=== PATIENT | female | born 1995 | race Caucasian/White ===

== ENCOUNTER → 2016-08-10 | Outpatient (CLI) | payer BC ==
--- NOTE | 2016-08-10 17:02 | US ---
EXAMINATION TYPE: US pelvis complete transvag DATE OF EXAM: 08/10/2016 4:07 PM COMPARISON: NONE CLINICAL HISTORY: R19.00 Pelvic mass. Left pelvic pain, right oopherectomy - history of ovarian cance r TECHNIQUE: Transvaginal (TV) and Transabdominal (TA) Date of LMP: 07/29/16 EXAM MEASUREMENTS: Uterus: 9.1 x 4.2 x 5.8 cm Endometrial Stripe: 1.3 cm Right Ovary: Surgically absent Left Ovary: 4.3 x 3.6 x 2.1 cm 1. Uterus: Anteverted complex cystic area OLIVIA = 1.3 x 1.2 x 1.1cm 2. Endometrium: thickened for menstrual stage 3. Right Ovary: Surgically absent 4. Left Ovary: multiple follicles 5. Bilateral Adnexa: small amount of free fluid left adnexa adjacent to left ovary 6. Posterior cul-de-sac: small amount of free fluid IMPRESSION: 1. Small amount of free fluid within the pelvis. 2. Follicles within the left ovary. 3. Septated cyst or 2 adjacent cysts within the lower uterine segment. Positioning is somewhat unclea r although nabothian cysts could be considered within the differential. Follow-up is recommended.
== END ==
LOC: RADUSWWP 15:36
PROVIDERS: ATTEND Obstetrics & Gynecology
DX: N85.8 Other specified noninflammatory disorders of uterus (principal); Z85.43 Personal history of malignant neoplasm of ovary
CPT/HCPCS: 76830; 76856

== ENCOUNTER 2020-02-26 17:30 | Emergency (ER) | payer BC, OTHER ==
--- NOTE | 2020-02-26 18:22 | ED ---
General Adult HPI - General Chief complaint: Abdominal Pain Stated complaint: 17 wks preg - abd pain/cramping Time Seen by Provider: 02/26/20 17:57 Source: patient Mode of arrival: ambulatory Limitations: no limitations - History of Present Illness Initial comments: Dictation was produced using [employer] dictation software. please excuse any grammatical, word or spelling errors. This patient was cared for during a federal and state declared state of emergency secondary to Covid 19 Chief Complaint: 24-year-old female presents with right lower quadrant abdominal pain History of Present Illness: 24-year-old female she has past medical history of appendectomy and right oophorectomy. She states that today she has been experiencing right lower quadrant abdominal pain. She states the pain radiates to her midline over the suprapubic area. Patient denies any nausea, vomiting, vaginal bleeding, vaginal discharge, fevers. Patient otherwise feels fine. She is never expressed any pain like this in the past. States that his symptoms are worse with palpation to the area. She'll also reports pain with movement. Discussed pain as a sharp pain. The ROS documented in this emergency department record has been reviewed and confirmed by me. Those systems with pertinent positive or negative responses have been documented in the HPI. All other systems are other negative and/or noncontributory. PHYSICAL EXAM: General Impression: Alert and oriented x3, not in acute distress HEENT: Normocephalic atraumatic, extra-ocular movements intact, pupils equal and reactive to light bilaterally, mucous membranes moist. Cardiovascular: Heart regular rate and rhythm Chest: Able to complete full sentences, no retractions, no tachypnea Abdomen: abdomen soft, gravid abdomen, mild palpable tenderness to the right lower quadrant suprapubic area non-distended, no organomegaly Musculoskeletal: Pulses present and equal in all extremities, no peripheral edema Motor: no focal deficits noted Neurological: CN II-XII grossly intact, no focal motor or sensory deficits noted Skin: Intact with no visualized rashes Psych: Normal affect and mood ED course: 24-year-old female presents with suprapubic abdominal pain.Patient seems to have pain with palpation to the area. She doesn't have any other accompanied symptoms. She looks well at bedside. Laboratory evaluation obtained. CBC unremarkable. Coag panel is negative. Metabolic panel is negative. Urinalysis is negative. Patient is a positive. ultrasound was obtained showing single live intrauterine . There is an indeterminatel area of decreased echogenicity may be related to venous sánchez. She was notified of these results. She is told to follow-up with her EQUIPMENT MAINTENANCE SUPERVISOR. Return parameters discussed - Related Data Allergies Allergy/AdvReac Type Severity Reaction Status Date / Time No Known Allergies Allergy Verified 02/26/20 17:55 Review of Systems ROS Statement: Those systems with pertinent positive or pertinent negative responses have been documented in the HPI. ROS Other: All systems not noted in ROS Statement are negative. Past Medical History Past Medical History: Cancer Additional Past Medical History / Comment(s): ovarian cancer History of Any Multi-Drug Resistant Organisms: None Reported Past Surgical History: Appendectomy Past Psychological History: Anxiety Smoking Status: Never smoker Past Alcohol Use History: None Reported Past Drug Use History: None Reported General Exam Limitations: no limitations Course Vital Signs 02/26/20 17:53 Temperature 99.3 F Pulse Rate 94 Respiratory 20 Rate Blood Pressure 178/84 O2 Sat by Pulse 100 Oximetry Medical Decision Making - Lab Data Result diagrams: 02/26/20 18:25 02/26/20 18:25 Lab Results 02/26/20 02/26/20 02/26/20 Range/Units 17:57 18:07 18:25 WBC 10.1 (3.8-10.6) k/uL RBC 4.02 (3.80-5.40) m/uL Hgb 11.9 (11.4-16.0) gm/dL Hct 36.1 (34.0-46.0) % MCV 89.9 (80.0-100.0) fL MCH 29.6 (25.0-35.0) pg MCHC 32.9 (31.0-37.0) g/dL RDW 13.8 (11.5-15.5) % Plt Count 209 (150-450) k/uL Neutrophils % 70 % Lymphocytes % 21 % Monocytes % 5 % Eosinophils % 2 % Basophils % 0 % Neutrophils # 7.1 (1.3-7.7) k/uL Lymphocytes # 2.1 (1.0-4.8) k/uL Monocytes # 0.5 (0-1.0) k/uL Eosinophils # 0.2 (0-0.7) k/uL Basophils # 0.0 (0-0.2) k/uL PT (9.0-12.0) sec INR (<1.2) APTT (22.0-30.0) sec Sodium (137-145) mmol/L Potassium (3.5-5.1) mmol/L Chloride (98-107) mmol/L Carbon Dioxide (22-30) mmol/L Anion Gap mmol/L BUN (7-17) mg/dL Creatinine (0.52-1.04) mg/dL Est GFR (CKD-EPI)AfAm (>60 ml/min/1.73 sqM) Est GFR (CKD-EPI)NonAf (>60 ml/min/1.73 sqM) Glucose (74-99) mg/dL Calcium (8.4-10.2) mg/dL Total Bilirubin (0.2-1.3) mg/dL AST (14-36) U/L ALT (4-34) U/L Alkaline Phosphatase (38-126) U/L Total Protein (6.3-8.2) g/dL Albumin (3.5-5.0) g/dL Urine Color Light Yellow Urine Appearance Clear (Clear) Urine pH 5.0 (5.0-8.0) Ur Specific [place] 1.022 (1.001-1.035) Urine Protein Negative (Negative) Urine Glucose (UA) Negative (Negative) Urine Ketones Negative (Negative) Urine Blood Negative (Negative) Urine Nitrite Negative (Negative) Urine Bilirubin Negative (Negative) Urine Urobilinogen <2.0 (<2.0) mg/dL Ur Leukocyte Esterase Negative (Negative) Urine HCG, Qual Detected (Not Detectd) Blood Type Blood Type Confirm Blood Type Recheck Bld Type Recheck Status Antibody Screen Spec Expiration Date 02/26/20 02/26/20 02/26/20 Range/Units 18:25 18:25 18:25 WBC (3.8-10.6) k/uL RBC (3.80-5.40) m/uL Hgb (11.4-16.0) gm/dL Hct (34.0-46.0) % MCV (80.0-100.0) fL MCH (25.0-35.0) pg MCHC (31.0-37.0) g/dL RDW (11.5-15.5) % Plt Count (150-450) k/uL Neutrophils % % Lymphocytes % % Monocytes % % Eosinophils % % Basophils % % Neutrophils # (1.3-7.7) k/uL Lymphocytes # (1.0-4.8) k/uL Monocytes # (0-1.0) k/uL Eosinophils # (0-0.7) k/uL Basophils # (0-0.2) k/uL PT 9.8 (9.0-12.0) sec INR 0.9 (<1.2) APTT 21.3 L (22.0-30.0) sec Sodium 134 L (137-145) mmol/L Potassium 3.4 L (3.5-5.1) mmol/L Chloride 105 (98-107) mmol/L Carbon Dioxide 24 (22-30) mmol/L Anion Gap 5 mmol/L BUN 9 (7-17) mg/dL Creatinine 0.56 (0.52-1.04) mg/dL Est GFR (CKD-EPI)AfAm >90 (>60 ml/min/1.73 sqM) Est GFR (CKD-EPI)NonAf >90 (>60 ml/min/1.73 sqM) Glucose 78 (74-99) mg/dL Calcium 9.1 (8.4-10.2) mg/dL Total Bilirubin 0.2 (0.2-1.3) mg/dL AST 20 (14-36) U/L ALT 14 (4-34) U/L Alkaline Phosphatase 56 (38-126) U/L Total Protein 6.8 (6.3-8.2) g/dL Albumin 3.7 (3.5-5.0) g/dL Urine Color Urine Appearance (Clear) Urine pH (5.0-8.0) Ur Specific [place] (1.001-1.035) Urine Protein (Negative) Urine Glucose (UA) (Negative) Urine Ketones (Negative) Urine Blood (Negative) Urine Nitrite (Negative) Urine Bilirubin (Negative) Urine Urobilinogen (<2.0) mg/dL Ur Leukocyte Esterase (Negative) Urine HCG, Qual (Not Detectd) Blood Type Blood Type Confirm Blood Type Recheck No Previous Record Bld Type Recheck Status CABO Indicated Antibody Screen Spec Expiration Date 02/29/2020232402/26/20 02/26/20 Range/Units 18:37 18:37 WBC (3.8-10.6) k/uL RBC (3.80-5.40) m/uL Hgb (11.4-16.0) gm/dL Hct (34.0-46.0) % MCV (80.0-100.0) fL MCH (25.0-35.0) pg MCHC (31.0-37.0) g/dL RDW (11.5-15.5) % Plt Count (150-450) k/uL Neutrophils % % Lymphocytes % % Monocytes % % Eosinophils % % Basophils % % Neutrophils # (1.3-7.7) k/uL Lymphocytes # (1.0-4.8) k/uL Monocytes # (0-1.0) k/uL Eosinophils # (0-0.7) k/uL Basophils # (0-0.2) k/uL PT (9.0-12.0) sec INR (<1.2) APTT (22.0-30.0) sec Sodium (137-145) mmol/L Potassium (3.5-5.1) mmol/L Chloride (98-107) mmol/L Carbon Dioxide (22-30) mmol/L Anion Gap mmol/L BUN (7-17) mg/dL Creatinine (0.52-1.04) mg/dL Est GFR (CKD-EPI)AfAm (>60 ml/min/1.73 sqM) Est GFR (CKD-EPI)NonAf (>60 ml/min/1.73 sqM) Glucose (74-99) mg/dL Calcium (8.4-10.2) mg/dL Total Bilirubin (0.2-1.3) mg/dL AST (14-36) U/L ALT (4-34) U/L Alkaline Phosphatase (38-126) U/L Total Protein (6.3-8.2) g/dL Albumin (3.5-5.0) g/dL Urine Color Urine Appearance (Clear) Urine pH (5.0-8.0) Ur Specific [place] (1.001-1.035) Urine Protein (Negative) Urine Glucose (UA) (Negative) Urine Ketones (Negative) Urine Blood (Negative) Urine Nitrite (Negative) Urine Bilirubin (Negative) Urine Urobilinogen (<2.0) mg/dL Ur Leukocyte Esterase (Negative) Urine HCG, Qual (Not Detectd) Blood Type A Positive Blood Type Confirm A Positive Blood Type Recheck Bld Type Recheck Status Antibody Screen NEGATIVE Spec Expiration Date Disposition Clinical Impression: Abdominal pain Disposition: HOME SELF-CARE Condition: Good Additional Instructions: Today reevaluated for inferior abdominal pain. Your labs all were within acceptable limits. Your ultrasound showed an indeterminate marginal area of decreased echogenicity may be related to a venous sánchez. It is unclear what this finding represents. More than likely it is non-worrisome. However, please follow-up with your EQUIPMENT MAINTENANCE SUPERVISOR. Is patient prescribed a controlled substance at d/c from ED?: No Referrals: Tanya Bill MD [STAFF PHYSICIAN] - 1-2 days Time of Disposition: 20:11
[2020-02-26 18:46] LABS: Basophils % (A) 0 %; Eosinophils # (A) 0.2 k/uL (0-0.7); Eosinophils % (A) 2 %; HCT 36.1 % (34.0-46.0); HGB 11.9 gm/dL (11.4-16.0); Lymphocytes # (A) 2.1 k/uL (1.0-4.8); Lymphocytes % (A) 21 %; MCH 29.6 pg (25.0-35.0); MCHC 32.9 g/dL (31.0-37.0); MCV 89.9 fL (80.0-100.0); Mean Platelet Volume 6.7; Monocytes # (A) 0.5 k/uL (0-1.0); Monocytes % (A) 5 %; Neutrophils # (A) 7.1 k/uL (1.3-7.7); Neutrophils % (A) 70 %; Platelet Count 209 k/uL (150-450); RBC 4.02 m/uL (3.80-5.40); RDW 13.8 % (11.5-15.5); WBC 10.1 k/uL (3.8-10.6)
[2020-02-26 18:53] LABS: ALT 14 U/L (4-34); AST 20 U/L (14-36); African American GFR (CKD) >90 (>60 ml/min/1.73 sqM); Albumin 3.7 g/dL (3.5-5.0); Alkaline Phosphatase 56 U/L (38-126); Anion Gap 5 mmol/L; Blood Urea Nitrogen 9 mg/dL (7-17); Calcium 9.1 mg/dL (8.4-10.2); Carbon Dioxide 24 mmol/L (22-30); Chloride 105 mmol/L (98-107); Glucose 78 mg/dL (74-99); Non-African American GFR(CKD) >90 (>60 ml/min/1.73 sqM); Potassium 3.4 mmol/L (3.5-5.1); Sodium 134 mmol/L (137-145); Total Bilirubin 0.2 mg/dL (0.2-1.3); Total Protein 6.8 g/dL (6.3-8.2)
[2020-02-26 19:33] LABS: INR 0.9 (<1.2); Prothrombin Time 9.8 sec (9.0-12.0)
[2020-02-26 19:44] LABS: Partial Thromboplastin Time 21.3 sec (22.0-30.0)
--- NOTE | 2020-02-26 19:53 | US ---
EXAMINATION TYPE: US OB >= 14 wk fetus DATE OF EXAM: 02/26/2020 COMPARISON: Pelvic US 2017 CLINICAL HISTORY: pelvic painPelvic pain x 2 days. Hx right ovary removed, right ovarian cancer, appe ndectomy, . . TECHNIQUE: Transabdominal (TA) GESTATIONAL AGE / DATING Physician Established: (17 weeks/5 days) EDC: 07/31/2020 Dates by LMP: (17 weeks/5 days) EDC: 07/31/2020 Dates by First Scan: This is first scan Dates by Current Scan: (18 weeks/0 days) EDC: 07/29/2020 SURVEY IUP: Single PLACENTA: Posterior. Indistinct, hypoechoic/complex area is seen adjacent to the placenta posteroinfe riorly measurin.4 x 3.7 x 1.1 cm. PREVIA: No Previa seen. JOHNNIE: 12.83 cm Normal CERVICAL LENGTH (transabdominal: norm > 3.0cm): 4.31 cm BIOMETRY PRESENTATION: Vertex LIE: Longitudinal BPD: 4.00 cm 18 weeks / 1 day HC: 15.05 cm 18 weeks / 1 day AC: 12.61 cm 18 weeks / 1 day FL: 2.57 cm 17 weeks / 6 days ESTIMATED WEIGHT IN GRAMS: 220.43 grams ESTIMATED WEIGHT IN LBS/OZ: 0 lbs. 8 oz. WEIGHT PERCENTAGE BASED ON ESTABLISHED DATES: 64.9% HC/AC: 1.19 Normal FL/AC: 20.38 HEART RATE: 159 bpm RHYTHM: Normal IMPRESSION: Single viable intrauterine corresponding to ultrasound age 18 weeks 0 days with estimated d ate of delivery 07/29/2020. Indeterminate marginal area decreased echogenicity may be related to venous sánchez.
[2020-02-26 19:55] LABS: Appearance,Urine Clear (Clear); Bilirubin,Urine Negative (Negative); Blood,Urine Negative (Negative); Color,Urine Light Yellow; Glucose,Urine (UA) Negative (Negative); Ketones,Urine Negative (Negative); Leukocyte Esterase,Urine Negative (Negative); Nitrite,Urine Negative (Negative); Protein,Urine Negative (Negative); Specific Gravity,Urine 1.022 (1.001-1.035); Urobilinogen,Urine <2.0 mg/dL (<2.0)
[2020-02-26 20:29] VITALS: BP 131/87; PULSE 75; RESP 18; TEMP 97.8
== END 2020-02-26 20:29 | disposition home or self-care (01) ==
LOC: EC 17:30
DX: O26.892 Other specified pregnancy related conditions, second trimester (principal); Z85.43 Personal history of malignant neoplasm of ovary; Z90.49 Acquired absence of other specified parts of digestive tract; Z3A.18 18 weeks gestation of pregnancy
CPT/HCPCS: 36415; 76805; 80053; 81003; 81025; 85025; 85610; 85730; 86850; 86900; 86901; 99284

== ENCOUNTER 2020-07-21 14:20 | Outpatient (CLI) | payer OTHER ==
[2020-07-21 15:52] LABS: Basophils % (A) 0 %; Eosinophils # (A) 0.1 k/uL (0-0.7); Eosinophils % (A) 1 %; HCT 34.4 % (34.0-46.0); HGB 11.9 gm/dL (11.4-16.0); Lymphocytes # (A) 1.9 k/uL (1.0-4.8); Lymphocytes % (A) 20 %; MCH 28.9 pg (25.0-35.0); MCHC 34.4 g/dL (31.0-37.0); Mean Platelet Volume 7.9; Monocytes # (A) 0.5 k/uL (0-1.0); Monocytes % (A) 5 %; Neutrophils # (A) 6.7 k/uL (1.3-7.7); Neutrophils % (A) 72 %; Platelet Count 233 k/uL (150-450); RDW 14.6 % (11.5-15.5); WBC 9.3 k/uL (3.8-10.6)
[2020-07-21 15:56] LABS: Uric Acid 4.9 mg/dL (3.7-7.4)
[2020-07-21 16:00] VITALS: PULSE 99; RESP 18; TEMP 96.5
[2020-07-21 16:16] VITALS: BP 134/81
--- NOTE | 2020-07-22 07:38 | P.MSEPDOC ---
Presenting Problems - Arrival Data Date of Arrival on Unit: 07/21/20 Time of Arrival on Unit: 14:20 Mode of Transport: Ambulatory - Complaint OB-Reason for Admission/Chief Complaint: Other Comment: co elevated blood pressures, dizziness, swelling of hands and feet. Medical History - Information : 2 Para: 1 Term: 1 : 0 Abortions: Spontaneous or Elective: 0 Number of Living Children: 1 - Gestational Age Gestational Age by MOLLY (wks/days): 38 Weeks and 4 Days - History Comment: elevated blood pressures. pih labs 07/18/20 in office. results unavaiable at this time. dizziness and swelling of feet and hands Review of Systems - Review of Systems Constitutional: No problems Breast: No problems ENT: No problems Cardiovascular: No problems Respiratory: No problems Gastrointestinal: No problems Genitourinary: No problems Musculoskeletal: No problems Neurological: No problems Skin: No problems Vital Signs - Temperature Temperature: 96.5 F Temperature Source: Temporal Artery Scan - Pulse Right Brachial Pulse Rate: 99 Pulse Assessment Method: Automatic Cuff - Respirations Respiratory Rate: 18 Oxygen Delivery Method: Room Air O2 Sat by Pulse Oximetry: 100 - Blood Pressure Right Arm Blood Pressure: 134/81 Blood Pressure Mean: 98 Blood Pressure Source: Automatic Cuff Medical Screen Scoring (Pre) - Cervical Exam Dilation: Exam Deferred Effacement: Exam Deferred Membranes: Intact - Uterine Contractions Frequency: N/A Duration: N/A Intensity: N/A - Maternal Vital Signs Maternal Temperature: N/A Maternal Blood Pressure: Diastolic > 89 = 1 Signs of Preeclampsia: Visual Disturbance = 1, 3+ edema of dependent extremities = 2 Maternal Respirations: N/A - Maternal Trauma Maternal Trauma: N/A - Assessment - Baby A Baseline FHR: 135 Heart Rate - NICHD Category: Category I (Normal) = 0 NST: Reactive Position: N/A Station: N/A - Total Score - Baby A Total Score - Baby A: 4 - Total Score - Baby B Total Score - Baby B: 4 - Total Score - Baby C Total Score - Baby C: 4 - Level of Risk - Baby A Level of Risk - Baby A: Low (0-5) - Level of Risk - Baby B Level of Risk - Baby B: Low (0-5) - Level of Risk - Baby C Level of Risk - Baby C: Low (0-5) Physician Notification (Pre) - Physician Notified Physician Notified Date: 07/21/20 Physician Notified Time: 15:15 New Order Received: Yes - Notification Comment Comment: alt, at, uric acid and cbc to be drawn. if wnl...may discharge home to keep appt with dr mcgowan tomorrow as scheduled. if abnormal call dr galeano with results Medical Screen Scoring (Post) - Cervical Exam Dilation: Exam Deferred Effacement: Exam Deferred Membranes: Intact - Uterine Contractions Frequency: N/A Duration: N/A Intensity: N/A - Maternal Vital Signs Maternal Temperature: N/A Maternal Blood Pressure: N/A Signs of Preeclampsia: 3+ edema of dependent extremities = 2 Maternal Respirations: N/A - Pain Assessment Pain Scale Used: Numeric (1 - 10) Pain Intensity: 0 - Maternal Trauma Maternal Trauma: N/A - Assessment - Baby A Heart Rate: 135 Heart Rate - NICHD Category: Category I (Normal) = 0 NST: Reactive Position: N/A Station: N/A - Total Score Total Score - Baby A: 2 Total Score - Baby B: 2 Total Score - Baby C: 2 - Post Treatment Level of Risk Post Treatment Level of Risk - Baby A: Low (0-5) Post Treatment Level of Risk - Baby B: Low (0-5) Post Treatment Level of Risk - Baby C: Low (0-5) Physician Notification (Post) - Physician Notified Physician Notified Date: 07/21/20 Physician Notified Time: 15:15 Physician/Practitioner Notified:: yes Spoke WithOtto galeano New Order Received: Yes - Notification Comment Comment: lab results wnl. to discharge home. Disposition - Disposition OB Disposition: Discharge to home Discharge Date: 07/21/20 Discharge Time: 16:15 I agree with the RN Medical Screening Exam: Yes Case reviewed; plan agreed upon as documented in EMR&OBIX.: Yes Comments: Patient was neither seen nor examined by me. Diagnosis: RELATED CONDITIONS, UNSPECIFIED, THIRD TRIMESTER
== END 2020-07-21 16:45 | disposition home or self-care (01) ==
LOC: FBPOP 14:20
PROVIDERS: ATTEND Obstetrics & Gynecology
DX: O26.93 Pregnancy related conditions, unspecified, third trimester (principal); Z3A.38 38 weeks gestation of pregnancy
CPT/HCPCS: 59025; 84450; 84460; 84550; 85025; 99215

== ENCOUNTER 2020-07-29 10:11 | Inpatient (IN) | payer OTHER ==
[2020-07-26 10:54] VITALS: BMI 42.3
[2020-07-29] MEDS ORDERED: LACTATED RINGERS 1,000 ML IV SCH (10:29)
[2020-07-29] MEDS ORDERED: CITRIC ACID-SODIUM CITRATE 15 ML CUP PO ONE (10:29)
[2020-07-29] MEDS ORDERED: LACTATED RINGERS 1,000 ML IV ONE (10:29)
[2020-07-29] MEDS ORDERED: ceFAZolin 3 GM in SODIUM CHLORIDE 0.9% 100 ML IVPB ONE (10:29)
[2020-07-29 11:48] LABS: Basophils % (A) 0 %; Eosinophils # (A) 0.1 k/uL (0-0.7); Eosinophils % (A) 1 %; HCT 32.8 % (34.0-46.0); HGB 10.9 gm/dL (11.4-16.0); Lymphocytes # (A) 1.8 k/uL (1.0-4.8); Lymphocytes % (A) 18 %; MCH 28.2 pg (25.0-35.0); MCHC 33.3 g/dL (31.0-37.0); MCV 84.6 fL (80.0-100.0); Monocytes # (A) 0.5 k/uL (0-1.0); Monocytes % (A) 5 %; Neutrophils # (A) 7.4 k/uL (1.3-7.7); Neutrophils % (A) 74 %; Platelet Count 234 k/uL (150-450); RBC 3.88 m/uL (3.80-5.40); RDW 15.4 % (11.5-15.5); WBC 9.9 k/uL (3.8-10.6)
--- NOTE | 2020-07-29 11:59 | P.HPOB ---
History of Present Illness H&P Date: 07/29/20 Chief Complaint: Term , previous This is a 24 year old 2 para 1001 woman with an estimated due date of 07/31/2020. She is scheduled for repeat low transverse section and bilateral tubal ligation. Her history is significant for previous term low transverse section in 2013. She desires repeat and after counseling regarding contraceptive options as determined that she would like to proceed with bilateral tubal ligation. Her past medical history is significant for a Sertoli-Leydig cell tumor of the ovary in 2009. Obstetric history: 2014 and 40 week term low transverse section of 8 lbs. 4 oz. infant. Laboratory data: Group B strep negative, blood type A+, antibody screen negative, rubella immune, VDRL nonreactive, hep Shyla surface antigen negative, HIV negative, gonorrhea cultures negative. chlamydia cultures were positive with eventual negative test of cure. Glucose sounds testing within normal limits. Review of Systems All systems: negative Past Medical History Past Medical History: Cancer Additional Past Medical History / Comment(s): ovarian cancer-tx chemo/surgery, elevated BP last 2 weeks- no rx, hx hypothyroid-no current rx History of Any Multi-Drug Resistant Organisms: None Reported Past Surgical History: Appendectomy, Section Additional Past Surgical History / Comment(s): port/later removed , rt oophorectomy Past Anesthesia/Blood Transfusion Reactions: Previous Problems w/ Anesthesia Additional Past Anesthesia/Blood Transfusion Reaction / Comment(s): with previous c/s "Stopped breathing" with epidural anesthesia-ended up needing a general Past Psychological History: No Psychological Hx Reported Smoking Status: Former smoker Past Alcohol Use History: None Reported Additional Past Alcohol Use History / Comment(s): quit smoking 1 yr ago, smoked for 3 yrs, Past Drug Use History: None Reported - Past Family History Mother Family Medical History: No Reported History Medications and Allergies Home Medications Medication Instructions Recorded Confirmed Type Aspirin [Children's Aspirin] 81 mg PO DAILY 07/21/20 07/29/20 History Pnv,Calcium 72/Iron/Folic Acid 1 each PO DAILY 07/21/20 07/29/20 History [ Plus Tablet] Allergies Allergy/AdvReac Type Severity Reaction Status Date / Time No Known Allergies Allergy Verified 07/29/20 10:30 Exam Vital Signs Temp Pulse Resp BP Pulse Ox 07/29/20 10:29 96.6 F L 85 16 134/87 98 Intake and Output 07/28/20 07/29/20 07/29/20 22:59 06:59 14:59 Other: Weight 122.47 kg This is a pleasant, visibly gravid female in no obvious distress. HEENT exam is unremarkable. Her breathing is unlabored and her lungs are clear to auscultation. Heart is a regular rate and rhythm. Abdomen is gravid with a fundal height of 40 cm and nontender. She has 2+ bilateral lower extremity edema. Pelvic exam is deferred. heart tones are category 1. Results Result Diagrams: 07/29/20 10:30 Abnormal Lab Results - Last 24 Hours (Table) 07/29/20 Range/Units 10:30 Hgb 10.9 L (11.4-16.0) gm/dL Hct 32.8 L (34.0-46.0) % Assessment and Plan (1) Family planning Current Visit: Yes Status: Acute Code(s): Z30.09 - ENCOUNTER FOR OT GENERAL CNSL AND ADVICE ON CONTRACEPTION SNOMED Code(s): 198561822 (2) History of Current Visit: Yes Status: Acute Code(s): Z98.891 - HISTORY OF UTERINE SCAR FROM PREVIOUS SURGERY SNOMED Code(s): 783368686 (3) Sertoli-Leydig cell tumor Narrative/Plan: History of, 2009. Current Visit: Yes Status: Acute Code(s): KOG4531 - SNOMED Code(s): 512904460 Plan: 24-year-old 2 para 1001 woman admitted at 39-5/7 weeks gestation for planned repeat low transverse section with bilateral tubal ligation with Filshie clips. This procedure, its alternatives, risks and benefits have been reviewed with the patient the outpatient setting. Risks include but are not limited to bleeding, transfusion, infection, damage to bowel, bladder, ure ters, and/or other internal structures. Alternatives to tubal ligation have been reviewed. Failure rate and risk of ectopic have been reviewed. Consent obtained.
[2020-07-29] MEDS ORDERED: ceFAZolin 1,000 MG VIAL ONE (12:00)
[2020-07-29] MEDS ORDERED: MORPHINE SULFATE (PF) 0.3 MG/0.3 ML SYR ONE (12:00)
[2020-07-29] MEDS ORDERED: ONDANSETRON 4 MG/2 ML VIAL ONE (12:00)
[2020-07-29] MEDS ORDERED: NALBUPHINE 10 MG/ML (1 ML AMP) ONE (12:00)
[2020-07-29] MEDS ORDERED: OXYTOCIN 10 UNIT/ML 1 ML VIAL ONE (12:00)
[2020-07-29] MEDS ORDERED: KETOROLAC 15 MG/ML 1 ML VIAL ONE (12:00)
[2020-07-29] MEDS ORDERED: ePHEDrine SULFATE/0.9% NACL/PF 50 MG/5 ML SYRINGE IV ONE (12:00)
[2020-07-29] MEDS ORDERED: SODIUM CHLORIDE 0.9% 100 ML BAG ONE (12:00)
--- NOTE | 2020-07-29 12:54 | P.OP ---
Date of Procedure: 07/29/20 Preoperative Diagnosis: Intrauterine at 39-5/7 weeks line history of previous low transverse section Desires permanent sterility History of Sertoli-Leydig cell ovarian cancer, right Postoperative Diagnosis: Same Procedure(s) Performed: Repeat low transverse section with left tubal ligation Anesthesia: spinal Surgeon: Tanya Bill Trailer Truck Driver #1: Abby Saucedo Estimated Blood Loss (ml): 900 IV fluids (ml): 1,000 Urine output (ml): 100 Pathology: none sent Condition: stable Disposition: floor Indications for Procedure: Previous low transverse section and desire for permanent sterility Operative Findings: Female in the vertex occiput posterior position with Apgars of 9 at 1 minute and 9 at 5 minutes weighing 8 lbs. 0 oz., 3620 g. Absent right fallopian tube and ovary. Normal-appearing left fallopian tube and ovary. Description of Procedure: After the patient was met preoperatively and all questions were answered, she was taken to the operating room where spinal anesthetic was administered without incident. She was then positioned, prepped and draped in the dorsal supine position with a leftward tilt. Barba catheter was placed. After anesthetic was confirmed adequate, a low transverse skin incision was made following the pre- existing scar. This was carried down to the underlying fascia both sharply and with the electrocautery. The fascia was then incised in the midline and extended bilaterally with the Sanford scissors. The superior aspect of the fascial incision was elevated and the underlying rectus muscles dissected off sharply and with the electrocautery. The inferior aspect of the fascial incision was also elevated and the underlying rectus muscles dissected off sharply. The muscles were adherent in the midline. These were bluntly and the peritoneum was tented up with hemostats. The peritoneum was entered sharply with the Metzenbaum scissors. The peritoneal incision was extended inferiorly and superiorly with good visualization of the bladder. The bladder blade was placed. The vesicouterine peritoneum was identified, tented up and entered sharply, the bladder flap was created both sharply and digitally. A low transverse uterine incision was then made sharply and carried down to the underlying amniotic membranes. There was a large anterior sinus that was entered upon the hysterotomy. Membranes were ruptured and clear fluid was noted. The uterine incision was extended bilaterally bluntly. The infant's head was delivered from the incision without difficulty. The nose and mouth were bulb suctioned. The rest of the was delivered onto the field without difficulty. And cut and the was taken to the warmer. An intact, three-vessel cord placenta was then manually removed and the uterus was exteriorized. The uterus was cleared of all clot and debris. The uterine incision was delineated with Gonzalez clamps. The uterine incision was then closed in a running locked fashion with 0 Vicryl suture. Additional [id number] sutures were placed where necessary along the incision for hemostasis. The left fallopian tube was positively identified and carried out to the fimbriated ends. Filshie clip were then applied in the mid ampullary portion of the tubes completely transecting each tube. The right ovary and fallopian tube were surgically absent consistent with the patient's surgical history. The uterus was then returned to the abdomen and the gutters were cleared of all clot and debris. The uterine incision was reinspected and Bovie electrocautery was utilized were necessary for hemostasis. The fascial edges, peritoneal edges and rectus muscles were inspected and Bovie electrocautery utilized were necessary for hemostasis. The fascia was then closed in a running fashion with 0 Vicryl suture. The subcuticular tissue was copiously suction irrigated and Bovie electrocautery utilized were necessary for hemostasis. 3-0 Vicryl suture was utilized to reapproximate the subcuticular tissue. The skin was then closed in a subcutaneous fashion with 4-0 Vicryl suture. All counts reported to me as correct by the operating room staff at the end of the procedure. The patient received antibiotics preoperatively and Pitocin following cord clamp. Mother and infant were both transported from the room in stable condition.
[2020-07-29] MEDS ORDERED: diphenhydrAMINE 50 MG CAP PO PRN (12:55)
[2020-07-29] MEDS ORDERED: NALOXONE 0.4 MG/ML 1 ML VIAL IV PRN (12:55)
[2020-07-29] MEDS ORDERED: diphenhydrAMINE 50 MG/ML 1 ML VIAL IVP PRN ×2 (12:55)
[2020-07-29] MEDS ORDERED: diphenhydrAMINE 25 MG CAP PO PRN (12:55)
[2020-07-29] MEDS ORDERED: ZOLPIDEM 5 MG TAB PO PRN (12:55)
[2020-07-29] MEDS ORDERED: METOCLOPRAMIDE 5 MG/ML 2 ML VIAL IVP PRN (12:55)
[2020-07-29] MEDS ORDERED: ONDANSETRON 4 MG/2 ML VIAL IVP PRN (12:55)
[2020-07-29] MEDS ORDERED: OXYTOCIN 30 UNITS/500 ML NS 30 UNIT in SALINE 1 500ML.BAG IV SCH (13:00)
[2020-07-29] MEDS: LACTATED RINGERS 1,000 ML IV SCH ×2 (13:10→18:43)
[2020-07-29] MEDS: IBUPROFEN IV 800 MG in SODIUM CHLORIDE 0.9% 250 ML IV SCH ×2 (14:04→20:16)
[2020-07-29] MEDS: ACETAMINOPHEN TAB 500 MG TAB PO SCH (16:06)
[2020-07-29] MEDS: SENNOSIDES-DOCUSATE SODIUM 1 EACH TAB PO SCH (20:15)
[2020-07-30] MEDS: ACETAMINOPHEN TAB 500 MG TAB PO SCH ×4 (00:42→19:53)
[2020-07-30] MEDS: IBUPROFEN 600 MG TAB PO PRN ×2 (04:06→11:21)
[2020-07-30 07:25] LABS: Basophils % (A) 0 %; Eosinophils # (A) 0.1 k/uL (0-0.7); Eosinophils % (A) 1 %; HGB 9.5 gm/dL (11.4-16.0); Lymphocytes # (A) 1.5 k/uL (1.0-4.8); Lymphocytes % (A) 15 %; MCH 28.7 pg (25.0-35.0); MCHC 33.8 g/dL (31.0-37.0); MCV 84.9 fL (80.0-100.0); Mean Platelet Volume 7.9; Monocytes # (A) 0.5 k/uL (0-1.0); Monocytes % (A) 4 %; Neutrophils % (A) 78 %; Platelet Count 220 k/uL (150-450); RDW 15.4 % (11.5-15.5); WBC 10.3 k/uL (3.8-10.6)
[2020-07-30] MEDS: SENNOSIDES-DOCUSATE SODIUM 1 EACH TAB PO SCH ×2 (08:30→19:54)
[2020-07-30] MEDS: IBUPROFEN IV 800 MG in SODIUM CHLORIDE 0.9% 250 ML IV SCH (08:31)
--- NOTE | 2020-07-30 08:35 | P.PNOBGPC ---
Subjective - Subjective Principal diagnosis: Postop day 1 Patient reports: Reports appetite normal, Reports voiding normally, Reports pain well controlled, Reports ambulating normally, Denies nauseated : doing well, nursing well Objective - Vital Signs Latest vital signs: Vital Signs Temp Pulse Resp BP Pulse Ox 07/30/20 04:00 97.5 F L 77 18 115/66 98 07/30/20 00:00 98.2 F 71 16 113/68 99 07/29/20 20:00 74 18 111/66 98 07/29/20 15:40 96.6 F L 78 16 123/81 07/29/20 14:51 77 16 111/70 99 07/29/20 14:21 79 16 114/60 100 07/29/20 13:51 76 16 123/61 97 07/29/20 13:36 81 16 129/60 98 07/29/20 13:21 82 16 116/62 99 07/29/20 13:06 84 16 109/63 99 07/29/20 12:51 96.2 F L 84 16 99/63 100 07/29/20 10:29 96.6 F L 85 16 134/87 98 Intake and Output 07/29/20 07/30/20 07/30/20 22:59 06:59 14:59 Intake Total 300 Output Total 600 1500 Balance -300 -1500 Intake: IV 300 Output: Urine 600 1500 Uretheral (Barba) 150 Other: Voiding Method Indwelling Catheter Toilet # Voids 0 - Exam Extremities: Present: edema (2+) Abdomen: Present: normal appearance, soft. Absent: distention, tenderness Incision: Present: normal, dry, intact. Absent: erythematous Uterus: Present: normal, firm. Absent: tenderness - Labs Labs: Abnormal Lab Results - Last 24 Hours (Table) 07/29/20 07/30/20 Range/Units 10:30 06:29 RBC 3.30 L (3.80-5.40) m/uL Hgb 10.9 L 9.5 L (11.4-16.0) gm/dL Hct 32.8 L 28.0 L (34.0-46.0) % Neutrophils # 8.0 H (1.3-7.7) k/uL Assessment and Plan (1) Family planning Current Visit: Yes Status: Acute Code(s): Z. 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 Recovering well. Continue routine care. Anticipate discharge home tomorrow.
--- NOTE | 2020-07-30 10:39 | P.PN ---
Progress Note - Text 07/30/20 656am 24 year old female s/p csection with spinal duramorph. ptient seen and evaluated for post op pain control,pt has a vas of 5, with no c/o n/v or pruritis. doing well.
[2020-07-30] MEDS: LACTATED RINGERS 1,000 ML IV SCH (13:15)
[2020-07-30] MEDS: IBUPROFEN 600 MG TAB PO SCH (17:43)
[2020-07-30] MEDS ORDERED: HYDROcodone/APAP 5-325MG 1 EACH TAB PO PRN (20:40)
[2020-07-30] MEDS: HYDROcodone/APAP 5-325MG 1 EACH TAB PO PRN (20:52)
[2020-07-31] MEDS: IBUPROFEN 600 MG TAB PO SCH ×2 (00:23→06:30)
[2020-07-31] MEDS: ACETAMINOPHEN TAB 500 MG TAB PO SCH ×2 (03:23→09:17)
--- NOTE | 2020-07-31 07:59 | P.DS ---
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 See the admission history and physical for details. Following admission she went to the operating room where she had an unremarkable repeat low transverse section and left tubal ligation. Patient's surgical history was significant for a previous light salpingo-oophorectomy for Sertoli-Leydig cell tumor in 2009. Findings at the time of surgery were significant for a liveborn female weighing 8 lbs. 0 oz. with Apgars of 8 at 1 minute and 9 at 5 minutes. The patient's course was unremarkable. By postoperative day #1 she was ambulating and voiding without difficulty. She tolerated a general diet and her vital signs were stable. Postoperative day #2 she had transition to oral pain medications and continued to ambulate and void without difficulty. Her incision appeared intact and well healing without erythema or discharge. Her lochia was minimal and she is breast-feeding successfully. She was therefore discharged home with routine instructions for postoperative care and follow-up. Plan - Discharge Summary Discharge Rx Participant: Yes New Discharge Prescriptions: New Ibuprofen [Motrin] 600 mg PO Q6H tab HYDROcodone/APAP 5-325MG [[place] 5-325] 1 each PO Q6HR PRN #10 tab PRN Reason: Pain Acetaminophen Tab [Tylenol] 1,000 mg PO Q6HR tab Discontinued Aspirin [Children's Aspirin] 81 mg PO DAILY No Action Pnv,Calcium 72/Iron/Folic Acid [ Plus Tablet] 1 each PO DAILY Discharge Medication List Pnv,Calcium 72/Iron/Folic Acid [ Plus Tablet] 1 each PO DAILY 07/21/20 [History] Acetaminophen Tab [Tylenol] 1,000 mg PO Q6HR tab 07/31/20 [Rx] HYDROcodone/APAP 5-325MG [[place] 5-325] 1 each PO Q6HR PRN #10 tab 07/31/20 [Rx] Ibuprofen [Motrin] 600 mg PO Q6H tab 07/31/20 [Rx] Follow up Appointment(s)/Referral(s): Tanya Bill MD [STAFF PHYSICIAN] - 2 Weeks Activity/Diet/Wound Care/Special Instructions: Follow-up in 2 weeks after surgery in the office. Call the office with any concerning signs or symptoms including fever greater than 101, severe abdominal pain, heavy vaginal bleeding, signs of wound infection, increased swelling or redness of the lower extremities, signs of depression. No driving for 2 weeks after surgery. No heavy lifting or vigorous activity until reevaluated in the office. No intercourse for 6 weeks after delivery.
[2020-07-31 08:20] VITALS: BP 124/88; PULSE 68; RESP 18; TEMP 98.9
[2020-07-31] MEDS: HYDROcodone/APAP 5-325MG 1 EACH TAB PO PRN (10:13)
== END 2020-07-31 11:00 | disposition home or self-care (01) | DRG 785 ==
LOC: 4FBP 10:11
PROVIDERS: ADMIT Obstetrics & Gynecology; ATTEND Obstetrics & Gynecology
PROC: 0UB60ZZ Excision of Left Fallopian Tube, Open Approach (ICD-10-PCS; 2020-07-29)
PROC: 10D00Z1 Extraction of Products of Conception, Low, Open Approach (ICD-10-PCS; principal; 2020-07-29 12:00)
DX: O34.211 Maternal care for low transverse scar from previous cesarean delivery (principal); Z37.0 Single live birth; Z3A.39 39 weeks gestation of pregnancy; Z87.891 Personal history of nicotine dependence; Z79.82 Long term (current) use of aspirin; Z85.43 Personal history of malignant neoplasm of ovary; Z90.79 Acquired absence of other genital organ(s); Z90.721 Acquired absence of ovaries, unilateral; Z30.2 Encounter for sterilization
CPT/HCPCS: 85025; 86850; 86900; 86901